=== PATIENT | male | born 1985 | race Caucasian/White ===

== ENCOUNTER 2024-09-21 19:30 | Emergency (ER) | payer SELFPAY ==
[2024-09-21] MEDS: Dexamethasone 4 MG Tab PO STA (21:20)
[2024-09-21] MEDS: Amoxicillin/Clavulanate K 875-125 MG Tab PO STA (21:21)
== END 2024-09-21 21:25 | disposition home or self-care (01) ==
LOC: MW.ED 19:30
DX: H66.91 Otitis media, unspecified, right ear (principal); F17.210 Nicotine dependence, cigarettes, uncomplicated; Z75.3 Unavailability and inaccessibility of health-care facilities
CPT/HCPCS: 99283; A9270; J8540

== ENCOUNTER 2024-10-23 12:41 | Emergency (ER) | payer SELFPAY | END 2024-10-23 13:05 | disposition home or self-care (01) | LOC: EDBD 12:41 → MW.ED 12:41 | DX: H66.91 Otitis media, unspecified, right ear (principal); Z79.899 Other long term (current) drug therapy | CPT/HCPCS: 99282 ==